=== PATIENT | female | born 1985 | race Hispanic/Latino ===

== ENCOUNTER 2017-06-04 21:22 | Emergency (ER) | payer OTHER ==
[2017-06-04 21:43] VITALS: BP 131/85; PULSE 70; RESP 18; TEMP 98.4; O2SAT 99
--- NOTE | 2017-06-04 23:32 | ED PDOC ---
Upper Extremity Pain/Injury Time Seen by Provider: 06/04/17 21:51 Chief Complaint (Nursing): Abnormal Skin Integrity History Per: Patient History/Exam Limitations: no limitations Additional Complaint(s): 31 yo F presents with laceration to the L thumb after using a knife to cut a zip tie. Reports no numbness, no decrease in ROM, no other injury. Past Medical History Vital Signs: Last Vital Signs Temp 98.4 F 06/04/17 21:40 Pulse 70 06/04/17 21:40 Resp 18 06/04/17 21:40 BP 131/85 06/04/17 21:40 Pulse Ox 99 06/04/17 21:40 - Family History Family History: States: No Known Family Hx - Allergies Allergies/Adverse Reactions: Allergies Allergy/AdvReac Type Severity Reaction Status Date / Time No Known Allergies Allergy Verified 06/04/17 21:40 Review of Systems Constitutional: Negative for: Fever, Chills, Weakness, Malaise Musculoskeletal: Negative for: Neck Pain, Arm Pain, Back Pain Skin: Positive for: Other (laceration L thumb). Negative for: Rash, Lesions, Jaundice Physical Exam - Reviewed Nursing Documentation Reviewed: Yes - Physical Exam Appears: Positive for: Well, In Acute Distress (mild painful distress. ) Skin: Positive for: Normal Color, Warm, Dry Pulses-Radial (L): 2+ Extremity: Positive for: Normal ROM, Capillary Refill (normal <2sec), Other (+ 1.5 cm laceration to the base of the L thumb). 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 Negative for : Motor/Sensory Deficits - ECG O2 Sat by Pulse Oximetry: 99 Medical Decision Making Medical Decision Making: Tdap IM administered. Laceration repair done by PA. Patient tolerated the procedure well. Bacitracin and clean dressing applied. Instructed on proper wound care. Advised to have sutures removed after 7 days. Disposition - Clinical Impression Clinical Impression: Finger laceration - Patient ED Disposition Is Patient to be Admitted: No Counseled Patient/Family Regarding: Diagnosis, Need For Followup - Disposition Referrals: Milo Mercado MD [Staff Provider] - Disposition: Routine/Home Disposition Time: 23:30 Condition: STABLE Additional Instructions: Follow up with your pmd in 2 days without fail. Keep wound clean and dry. Have sutures removed after 7 days. Return to the ER at any time for any new or worsening symptoms. 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 Laceration - Laceration Repair No standard instances Wound Length (In cm): 1.5 Description Of Wound: Linear Wound Cleansed With: Betadine (irrigated with water) Anesthesia: Lidocaine 1% Wound Examination: No FB With Wound Exploration Wound Closure: Suture (2, 5-0 nylon sutures by PA) Wound Complexity: Simple
[2017-06-04] MEDS ORDERED: Tdap Vaccine 0.5 ml Vial (10-64 yrs) IM ONE (23:46)
[2017-06-04] MEDS: Tdap Vaccine 0.5 ml Vial (10-64 yrs) IM ONE (23:54)
== END 2017-06-04 23:55 | disposition home or self-care (01) ==
LOC: H.ER 21:22
DX: S61.012A Laceration without foreign body of left thumb without damage to nail, initial encounter (principal); W26.0XXA Contact with knife, initial encounter; Y92.89 Other specified places as the place of occurrence of the external cause